=== PATIENT | male | born 1965 | race Caucasian/White ===

== ENCOUNTER 2018-01-02 16:29 | Emergency (ER) | payer BC ==
[2018-01-02 16:50] VITALS: O2SAT 98
[2018-01-02] MEDS ORDERED: Vistaril 50 MG/ML IM ONE (17:36)
[2018-01-02] MEDS ORDERED: Sodium Chloride 0.9% 1000 ML 1,000 ML IV STA (17:38)
[2018-01-02] MEDS ORDERED: VISTARIL 100MG/2ML IM ONE (18:01)
[2018-01-02] MEDS ORDERED: Sodium Chloride 0.9% 1000 ML 1,000 ML ONE (18:02)
[2018-01-02 18:14] LABS: BASOPHIL % 0.2 % (0.0-0.4); Basophil (Absolute #) 0.01 (0-0.4); Eosinophil % 2.4 % (0.00-5.0); Eosinophil (Absolute #) 0.16 (0-0.5); Granulocyte Absolute (ANC) 4.51 (1.4-6.9); Granulocytes % 68.1 % (36.0-66.0); Hematocrit 43.2 % (42-50); Hemoglobin 15.1 gm/dl (12.5-18.0); Lymphocyte (Absolute #) 1.38 (1.0-4.6); Lymphocytes % 20.8 % (24.0-44.0); Mean Cell Volume 87.1 fl (78-100); Mean Corpuscular Hemoglobin 30.4 pg (26-32); Mean Platelet Volume 10.2 fl (6-9.5); Monocyte (Absolute #) 0.56 (0.0-1.3); Monocytes % 8.5 % (0.0-12.0); Platelet Count 185 K/mm3 (150-450); Red Blood Count 4.96 M/mm3 (4.1-5.6); Red Cell Distribution Width 12.6 % (11.5-14.0); White Blood Count 6.6 K/mm3 (4.0-10.5)
[2018-01-02 18:26] LABS: Appearance CLEAR (CLEAR); Bilirubin NEGATIVE (NEGATIVE); Blood NEGATIVE Ery/ul (0-5); Glucose NEGATIVE (NEGATIVE); Ketones NEGATIVE (NEGATIVE); Leukocyte Esterase NEGATIVE (NEGATIVE); Nitrite NEGATIVE (NEGATIVE); Protein,Urine Dip NEGATIVE (Negative); Urobilinogen NORMAL mg/dL (0-1)
[2018-01-02 18:37] LABS: BLOOD UREA NITROGEN 14 mg/dL (9-20); CHLORIDE 105 mmol/L (98-107); Calcium 9.7 mg/dL (8.4-10.2); Carbon Dioxide 21 mmol/L (22-30); Creatinine 1 1.01 mg/dL (0.66-1.25); Glucose 131 mg/dL (74-106); Potassium 3.8 mmol/L (3.5-5.1); SODIUM 141 mmol/L (137-145)
--- NOTE | 2018-01-02 19:42 | ERPHSYRPT ---
- History of Present Illness Time Seen by Provider: 01/02/18 17:23 Source: patient, family Patient Subjective Stated Complaint: Pt arrives to ER with a litany of c/o including "I feel drunk", prostate infection for which is on abx started November 30 and started new abx January 01, burning at the tip of penis on outside started yesterday, feels hot all over, lips and eyelids tingling, involuntary twitching and intermittent chest pains for past month, currently pain free. Triage Nursing Assessment: Warm, clammy skin. A&OX4 and in no distress at this time. Physician History: CC: burning hx: 52 y/o patient of [employer] Tina Schreiber and Dr Luz Mccall. He was treated for prostatitis with 28 days of cipro last month. Stopped. Last week had return of some symptoms so called out bactrim on January 01. He took a few doses and felt burning in his whole body, burning and irritation of glans penis, hot all over, tingling in his eyes, lips, and hands. No fever or chills. Normal urination. No back pain. No trouble breathing. No itching. No V/D. Last dose of bactrim was at 3PM today. Timing/Duration: yesterday Severity: moderate Allergies/Adverse Reactions: No Known Drug Allergies Allergy (Unverified 08/29/13 09:27) Home Medications: Hydrocodone/APAP 10/325 mg [Mars 10/325 MG Tablet] 1 tab PO Q8HPRN PRN [History] Metoprolol Succinate 25 mg Xl* [Toprol-Xl 25MG Tablets] 25 mg PO DAILY [History] Sulfamethoxazole/Trimethoprim [Bactrim 400-80 mg Tablet] 2 tab PO BID 01/02/18 [ History] Venlafaxine HCl ER 37.5 mg [Effexor ER 37.5 MG] 37.5 mg PO DAILY 01/02/18 [History] Hx Tetanus, Diphtheria Vaccination/Date Given: Yes Hx Influenza Vaccination/Date Given: Yes Hx Pneumococcal Vaccination/Date Given: Yes Immunizations Up to Date: Yes - Review of Systems Constitutional: Malaise, No Fever, No Chills Eyes: No Symptoms Ears, Nose, & Throat: No Symptoms Respiratory: No Cough, No Dyspnea Cardiac: No Chest Pain Abdominal/Gastrointestinal: No Abdominal Pain, No Nausea, No Vomiting, No Diarrhea Skin: No Pruritis, No Rash, No Skin Lesions Neurological: No Focal Weakness, No Headache, No Parasthesia All Other Systems: Reviewed and Negative - Past Medical History Pertinent Past Medical History: Yes Neurological History: No Pertinent History Cardiac History: No Pertinent History Respiratory History: No Pertinent History Endocrine Medical History: No Pertinent History Musculoskeletal History: Arthritis Male Reproductive Disorders: Prostate Problems - Past Surgical History Past Surgical History: Yes Gastrointestinal: Other - Social History Smoking Status: Former smoker Exposure to second hand smoke: Yes Drug Use: none Patient Lives Alone: No - Nursing Vital Signs Nursing Vital Signs: Initial Vital Signs Temperature 99.2 F 01/02/18 16:41 Pulse Rate 94 H 01/02/18 16:41 Respiratory Rate 18 01/02/18 16:41 Blood Pressure 159/85 01/02/18 16:41 O2 Sat by Pulse Oximetry 98 01/02/18 16:41 Pain Scale Pain Intensity 1 - Physical Exam General Appearance: alert Eye Exam: PERRL/EOMI Ears, Nose, Throat Exam: normal ENT inspection, pharynx normal, moist mucous membranes Neck Exam: normal inspection, non-tender, supple Respiratory Exam: normal breath sounds Cardiovascular Exam: regular rate/rhythm Gastrointestinal/Abdomen Exam: soft, No tenderness, No distention, No mass, No guarding Male Genitalia Exam: prostate enlargement, other (mild erythema glans penis, no other apparent mucous membrane ulcerations or lesions), No testicular tenderness , No prostate tenderness, No penile discharge Back Exam: normal inspection, normal range of motion Extremity Exam: normal inspection, normal range of motion Neurologic Exam: alert, oriented x 3, cooperative, appointment coordinator II-XII nml as tested, sensation nml, No motor deficits Skin Exam: warm, dry, No rash SpO2 Interpretation: normal SpO2: 98 Oxygen Delivery: Room Air - Course Nursing assessment & vital signs reviewed: Yes Ordered Tests: Active Orders 24 hr Category Date Time Status EKG-ER Only STAT Care 01/02/18 17:38 Active IV Insertion STAT Care 01/02/18 17:38 Active Rectal Temperature STAT Care 01/02/18 17:39 Active BLOOD CULTURE Stat Lab 01/02/18 18:05 Received BMP Stat Lab 01/02/18 17:50 Completed CBC W DIFF Stat Lab 01/02/18 17:50 Completed Lactic Acid Stat Lab 01/02/18 17:38 Completed UA W/RFX UR CULTURE Stat Lab 01/02/18 18:15 Completed Medication Summary Discontinued Medications Generic Name Dose Route Start Last Admin Trade Name Freq PRN Reason Stop Dose Admin Hydroxyzine HCl 50 mg 01/02/18 17:36 01/02/18 18:11 Vistaril 50 Mg/Ml IM 01/02/18 17:37 50 mg STAT ONE Administration Hydroxyzine HCl Confirm 01/02/18 18:01 Vistaril 100mg/2ml Administered 01/02/18 18:02 Dose 100 mg IM .STK-MED ONE Sodium Chloride 1,000 mls @ 999 mls/hr 01/02/18 17:38 01/02/18 18:11 Sodium Chloride 0.9% 1000 Ml IV 01/02/18 18:38 999 mls/hr .Q1H1M STA Administration Sodium Chloride Confirm 01/02/18 18:02 Sodium Chloride 0.9% 1000 Ml Administered 01/02/18 18:03 Dose 1,000 mls @ ud .ROUTE .STK-MED ONE Lab/Rad Data: Laboratory Result Diagrams 01/02/18 17:50 01/02/18 17:50 Laboratory Results 01/02/18 01/02/18 01/02/18 Range/Units 18:15 17:50 17:50 WBC 6.6 (4.0-10.5) K/mm3 RBC 4.96 (4.1-5.6) M/mm3 Hgb 15.1 (12.5-18.0) gm/dl Hct 43.2 (42-50) % MCV 87.1 (78-100) fl MCH 30.4 (26-32) pg MCHC 35.0 (32-36) g/dl RDW 12.6 (11.5-14.0) % Plt Count 185 (150-450) K/mm3 MPV 10.2 H (6-9.5) fl Gran % 68.1 H (36.0-66.0) % Eos # (Auto) 0.16 (0-0.5) Absolute Lymphs (auto) 1.38 (1.0-4.6) Absolute Monos (auto) 0.56 (0.0-1.3) Lymphocytes % 20.8 L (24.0-44.0) % Monocytes % 8.5 (0.0-12.0) % Eosinophils % 2.4 (0.00-5.0) % Basophils % 0.2 (0.0-0.4) % Absolute Granulocytes 4.51 (1.4-6.9) Basophils # 0.01 (0-0.4) Sodium 141 (137-145) mmol/L Potassium 3.8 (3.5-5.1) mmol/L Chloride 105 (98-107) mmol/L Carbon Dioxide 21 L (22-30) mmol/L Anion Gap 19.0 H (5-15) MEQ/L BUN 14 (9-20) mg/dL Creatinine 1.01 (0.66-1.25) mg/dL Estimated GFR > 60.0 ML/MIN Glucose 131 H (74-106) mg/dL Lactic Acid (0.4-2.0) Calcium 9.7 (8.4-10.2) mg/dL Ur Collection Type CCMS Urine Color YELLOW (YELLOW) Urine Appearance CLEAR (CLEAR) Urine pH 6.0 (5-6) Ur Specific [place] 1.020 (1.005-1.025) Urine Protein NEGATIVE (Negative) Urine Ketones NEGATIVE (NEGATIVE) Urine Blood NEGATIVE (0-5) Seth/ul Urine Nitrite NEGATIVE (NEGATIVE) Urine Bilirubin NEGATIVE (NEGATIVE) Urine Urobilinogen NORMAL (0-1) mg/dL Ur Leukocyte Esterase NEGATIVE (NEGATIVE) Urine Culture Reflexed NO (NO) Urine Glucose NEGATIVE (NEGATIVE) mg/dL Specimen Received 01-02-18 1820 01/02/18 Range/Units 17:38 WBC (4.0-10.5) K/mm3 RBC (4.1-5.6) M/mm3 Hgb (12.5-18.0) gm/dl Hct (42-50) % MCV (78-100) fl MCH (26-32) pg MCHC (32-36) g/dl RDW (11.5-14.0) % Plt Count (150-450) K/mm3 MPV (6-9.5) fl Gran % (36.0-66.0) % Eos # (Auto) (0-0.5) Absolute Lymphs (auto) (1.0-4.6) Absolute Monos (auto) (0.0-1.3) Lymphocytes % (24.0-44.0) % Monocytes % (0.0-12.0) % Eosinophils % (0.00-5.0) % Basophils % (0.0-0.4) % Absolute Granulocytes (1.4-6.9) Basophils # (0-0.4) Sodium (137-145) mmol/L Potassium (3.5-5.1) mmol/L Chloride (98-107) mmol/L Carbon Dioxide (22-30) mmol/L Anion Gap (5-15) MEQ/L BUN (9-20) mg/dL Creatinine (0.66-1.25) mg/dL Estimated GFR ML/MIN Glucose (74-106) mg/dL Lactic Acid 1.8 (0.4-2.0) Calcium (8.4-10.2) mg/dL Ur Collection Type Urine Color (YELLOW) Urine Appearance (CLEAR) Urine pH (5-6) Ur Specific [place] (1.005-1.025) Urine Protein (Negative) Urine Ketones (NEGATIVE) Urine Blood (0-5) Seth/ul Urine Nitrite (NEGATIVE) Urine Bilirubin (NEGATIVE) Urine Urobilinogen (0-1) mg/dL Ur Leukocyte Esterase (NEGATIVE) Urine Culture Reflexed (NO) Urine Glucose (NEGATIVE) mg/dL Specimen Received - Progress Progress Note: 01/02/18 19:44 He was tachy after prostate exam, no fever. Normal urination. Will stop bactrim , Rx atarax, and Rx keflex until follow up with Dr Mccall and ELAN Schreiber. Counseled pt/family regarding: lab results, diagnosis, need for follow-up - Departure Time of Disposition: 19:45 Departure Disposition: Home Clinical Impression: Allergy to sulfa drugs, Hx of prostatitis Condition: Stable Critical Care Time: No Referrals: AYSE MCCALL [Primary Care Provider] - LORI SCHREIBER NP [[employer] STAFF] - Instructions: Allergy to Sulfa Drugs, Prostatitis Additional Instructions: Rx atarax-hydroxyzine. No driving tonite or while taking. Stop bactrim. Rx keflex. Follow up this week with Dr Mccall/ELAN Schreiber. Return for problems or concerns. Prescriptions: Hydroxyzine HCl 1 tab PO Q6H PRN PRN #24 tablet PRN Reason: rash,rest Cephalexin Mh 500 mg [Keflex 500 mg] 1 cap PO QID #40 capsule
[2018-01-02 19:56] VITALS: BP 134/89; PULSE 88
== END 2018-01-02 20:00 | disposition home or self-care (01) ==
LOC: ED 16:29
DX: R20.2 Paresthesia of skin (principal); T37.0X5A Adverse effect of sulfonamides, initial encounter; Z87.438 Personal history of other diseases of male genital organs; Z79.899 Other long term (current) drug therapy
CPT/HCPCS: 36000; 36415; 80048; 81002; 83605; 85025; 87040; 96360; 96372; 99284; J3410

== ENCOUNTER 2018-02-21 10:40 | Day surgery (SDC) | payer BC ==
[2018-02-21] MEDS ORDERED: DECADRON 10MG INJ. IM ONE (10:41)
[2018-02-21] MEDS ORDERED: DIPRIVAN 200 MG/20 ML IV ONE (10:41)
[2018-02-21] MEDS ORDERED: Xylocaine 1% Vial 30 ML PF IJ ONE (10:41)
[2018-02-21] MEDS ORDERED: Lactated Ringers 1,000 ML IV ONE (12:06)
--- NOTE | 2018-02-21 13:35 | XRAY ---
Indication: Left L4 FANY. Intraoperative fluoroscopy was provided for 1 minute 5 seconds. 3 digital spot images submitted for interpretation demonstrates a posterior spinal needle tip projecting over the expected course of the left L4 nerve root. Tiny contrast injected for needle tip placement. Correlate with intraoperative findings/report.
--- NOTE | 2018-02-21 13:47 | XRAY ---
1 minute and 5 seconds fluoroscopy time in surgery for left L4 FANY.
--- NOTE | 2018-02-22 08:41 | OP ---
DATE OF PROCEDURE: 02/21/2018 1233 SURGEON: Kenny Sumner D.O. PREOPERATIVE DIAGNOSES: Degenerative lumbar spine disease, lumbar spondylosis. POSTOPERATIVE DIAGNOSES: Degenerative lumbar spine disease, lumbar spondylosis. PROCEDURE PERFORMED: Epidural steroid injection at left L4 under fluoroscopic guidance. DESCRIPTION OF PROCEDURE: The patient was taken to the operating room and laid in the prone position on the table. Skin over the injection site was prepped and draped in sterile fashion. Under fluoroscope bony anatomy at the targeted injection site was visualized. Induction agent was given as per anesthesia while vital signs were monitored. Local anesthetic agent was introduced to anesthetize the skin in the subcutaneous tissue through injection site. The local anesthetic agent used is 9 cc of 1% lidocaine. Under fluoroscopic guidance a #22-gauge standard spinal needle was advanced into the target epidural space. The medication used for this procedure is preservative-free dexamethasone 20 mg of total 2 cc injected into each of the target epidural space. While the needle was being removed normal saline was simultaneously infiltrated to avoid sterile needle tract. Skin was cleansed with alcohol and then a bandage was applied. The preoperative pain level 10 out of 10 and the postoperative pain level is 5 out of 10. No complications or adverse consequences were observed. The patient was returned to the holding area until stabilized before discharge to home. The patient will be followed up within ten days after the injection for reevaluation.
== END 2018-02-21 13:18 | disposition home or self-care (01) ==
LOC: SDC-PAIN 10:40
PROVIDERS: ATTEND Internal Medicine
DX: M51.36 Other intervertebral disc degeneration, lumbar region (principal); M54.5 Low back pain; M54.16 Radiculopathy, lumbar region; M46.96 Unspecified inflammatory spondylopathy, lumbar region; Z79.891 Long term (current) use of opiate analgesic
CPT/HCPCS: 64483; 72020; 77003; J1100; J2001; J2704; Q9967

== ENCOUNTER 2018-09-09 16:40 | Observation (INO) | payer BC, OTHER, SELFPAY ==
--- NOTE | 2018-09-09 17:11 | ERPHSYRPT ---
- History of Present Illness Time Seen by Provider: 09/09/18 17:00 Historian: patient Exam Limitations: no limitations Patient Subjective Stated Complaint: PT states "About 9 am this morning I started to have this odd chest pain. I didn't think anything of it until it started to go up my neck and I started to have an odd headach." Triage Nursing Assessment: Pt alert and oriented X 3, skin pwd. PT ambulates with an upright steady gait, able to speak in clear full sentences. PT in no apparent respiratory distress. Physician History: This is a 52-year-old white male who arrives with complaint of pain in his anterior chest radiating up into the left side of his neck began approximately 9 :00 this morning lasted about 15-20 minutes. and then has been recurring since around noon. Patient states he is not short of breath with did have pain into his neck. he states that he started seeing spots vision while he was driving with the pain. Therefore he came into the emergency room. Past medical history prostate problems. Past surgical history patient had repair of his colon and his bladder apparently had ingested something sharp which apparently led to stool and bladder. Timing/Duration: today Activities at Onset: none Quality: tightness Location: central Chest Pain Radiation: neck (1) Severity of Pain-Max: moderate Severity of Pain-Current: mild (on) Modifying Factors: Improves With: nothing Associated Symptoms: headache, other (patient states he was seeing spots with the above symptoms), No nausea, No vomiting, No palpitations, No heartburn, No abdominal pain, No shortness of breath, No cough, No hurts to breathe, No diaphoresis, No chills, No fever, No fatigue, No weakness, No swelling/lump in chest, No syncope, No rash, No dizziness, No edema, No back pain Aspirin Treatment Today: 81 mg x 4, provided by ED Allergies/Adverse Reactions: Sulfa (Sulfonamide Antibiotics) Allergy (Verified 09/09/18 16:50) felt like on fire Home Medications: Hydrocodone Bit/Acetaminophen [[place] 5-325 Tablet] 1 tab PO TID 09/09/18 [ History] Metoprolol Tartrate [Lopressor] 50 mg PO DAILY 09/09/18 [History] Prazosin HCl 1 mg PO DAILY 09/09/18 [History] lamoTRIgine [Lamotrigine] 100 mg PO DAILY 09/09/18 [History] Hx Tetanus, Diphtheria Vaccination/Date Given: Yes Hx Influenza Vaccination/Date Given: No Hx Pneumococcal Vaccination/Date Given: No Immunizations Up to Date: Yes - Review of Systems Constitutional: No No Symptoms, No Fever, No Chills Eyes: Other (Patient's seeing spots while he was having pain in his chest) Ears, Nose, & Throat: No Symptoms Respiratory: No Cough, No Dyspnea Cardiac: Chest Pain, Palpitations, No Edema, No Syncope, No Orthopnea Abdominal/Gastrointestinal: No Abdominal Pain, No Nausea, No Vomiting, No Diarrhea Genitourinary Symptoms: No Dysuria Musculoskeletal: No Arthralgias, No Back Pain, No Neck Pain, No Deformity, No Fall, No Injury, No Joint Redness, No Joint Pain, No Joint Swelling Skin: No Rash Neurological: Headache, No Dizziness, No Focal Weakness, No Gait Changes, No Irritability, No Lethargy, No Paralysis, No Parasthesia, No Seizure, No Sensory Changes, No Speech Changes, No Tics, No Tremors, No Vertigo Psychological: No Symptoms Endocrine: No Symptoms All Other Systems: Reviewed and Negative - Past Medical History Pertinent Past Medical History: Yes Neurological History: No Pertinent History Cardiac History: No Pertinent History Respiratory History: No Pertinent History Endocrine Medical History: No Pertinent History Musculoskeletal History: Arthritis Male Reproductive Disorders: Prostate Problems - Past Surgical History Past Surgical History: Yes Gastrointestinal: Other - Social History Smoking Status: Former smoker Exposure to second hand smoke: Yes Drug Use: none Patient Lives Alone: No - Nursing Vital Signs Nursing Vital Signs: Initial Vital Signs Temperature 99.0 F 09/09/18 16:43 Pulse Rate 78 09/09/18 16:43 Respiratory Rate 20 09/09/18 16:43 Blood Pressure 171/94 09/09/18 16:43 O2 Sat by Pulse Oximetry 98 09/09/18 16:43 Pain Scale Pain Intensity 0 - Physical Exam General Appearance: no apparent distress, alert Eye Exam: PERRL/EOMI, eyes nml inspection Ears, Nose, Throat Exam: normal ENT inspection, moist mucous membranes Neck Exam: normal inspection, non-tender, supple, full range of motion Respiratory Exam: normal breath sounds, lungs clear, No respiratory distress Cardiovascular Exam: regular rate/rhythm, normal heart sounds, normal peripheral pulses, No murmur Gastrointestinal/Abdomen Exam: soft, No tenderness, No mass Back Exam: normal inspection, No CVA tenderness, No vertebral tenderness Extremity Exam: normal inspection, normal range of motion Neurologic Exam: alert, oriented x 3, cooperative, health worker II-XII nml as tested, normal mood/affect, nml cerebellar function, sensation nml, No motor deficits, No sensory deficit, No disoriented, No confusion, No agitation, No uncooperative , No intoxicated appearance, No depressed mood/affect, No motor weakness, No facial droop, No slurred speech, No aphasia, No dysarthria, No abnormal gait, No abnormal cerebellar tests, No abnormal health worker II-XII Skin Exam: normal color, warm, dry SpO2 Interpretation: normal (98%) SpO2: 98 Oxygen Delivery: Room Air - Course Nursing assessment & vital signs reviewed: Yes EKG Interpreted by Me: RATE (78 bpm), Sinus Rhythm, NORMAL AXIS, Other (EKG: Sinus rhythm, 78 bpm, normal axis, no acute ST or T wave changes, normal EKG) - Radiology Exams Chest X-ray Interpretation: Interpreted by me (no acute disease process noted) - CT Exams Head CT Interpretation: Tele-radiologist Report (no infarct, no hemorrhage, no mass) Ordered Tests: Active Orders 24 hr Category Date Time Status Application Design Engineer STAT Care 09/09/18 16:46 Active EKG-ER Only STAT Care 09/09/18 16:46 Active IV Insertion STAT Care 09/09/18 16:46 Active CHEST 1 VIEW (PORTABLE) Stat Exams 09/09/18 16:46 Taken HEAD WITHOUT CONTRAST [CT] Stat Exams 09/09/18 17:05 Taken CBC W DIFF Stat Lab 09/09/18 17:00 Completed CMP Stat Lab 09/09/18 17:00 Completed D-DIMER QUANTITATION Stat Lab 09/09/18 17:00 Completed PROTIME WITH INR Stat Lab 09/09/18 17:00 Completed PTT Stat Lab 09/09/18 17:00 Completed TROPONIN Q3H Lab 09/09/18 17:00 Completed TROPONIN Q3H Lab 09/09/18 20:00 Ordered TROPONIN Q3H Lab 09/09/18 23:00 Ordered TROPONIN Q3H Lab 09/10/18 02:00 Ordered TROPONIN Q3H Lab 09/10/18 05:00 Ordered Medication Summary Discontinued Medications Generic Name Dose Route Start Last Admin Trade Name Freq PRN Reason Stop Dose Admin Aspirin 324 mg 09/09/18 17:55 09/09/18 17:00 Baby Aspirin 81 Mg Chew PO 09/09/18 17:56 324 mg STAT ONE Administration Aspirin Confirm 09/09/18 18:35 Baby Aspirin 81 Mg Chew Administered 09/09/18 18:36 Dose 324 mg .ROUTE .STK-MED ONE Lab/Rad Data: Laboratory Result Diagrams 09/09/18 17:00 09/09/18 17:00 Laboratory Results 09/09/18 09/09/18 09/09/18 Range/Units 17:00 17:00 17:00 WBC (4.0-10.5) K/mm3 RBC (4.1-5.6) M/mm3 Hgb (12.5-18.0) gm/dl Hct (42-50) % MCV (78-100) fl MCH (26-32) pg MCHC (32-36) g/dl RDW (11.5-14.0) % Plt Count (150-450) K/mm3 MPV (6-9.5) fl Gran % (36.0-66.0) % Eos # (Auto) (0-0.5) Absolute Lymphs (auto) (1.0-4.6) Absolute Monos (auto) (0.0-1.3) Lymphocytes % (24.0-44.0) % Monocytes % (0.0-12.0) % Eosinophils % (0.00-5.0) % Basophils % (0.0-0.4) % Absolute Granulocytes (1.4-6.9) Basophils # (0-0.4) PT 12.2 (8.83-12.87) SECONDS INR 1.05 (0.8-3.0) APTT 30.4 (24.1-36.1) SECONDS D-Dimer 254 (215-500) ng/mL Sodium 138 (137-145) mmol/L Potassium 5.2 H (3.5-5.1) mmol/L Chloride 108 H (98-107) mmol/L Carbon Dioxide 19 L (22-30) mmol/L Anion Gap 16.4 H (5-15) MEQ/L BUN 12 (9-20) mg/dL Creatinine 0.80 (0.66-1.25) mg/dL Estimated GFR > 60.0 ML/MIN Glucose 124 H (74-106) mg/dL Calcium 9.3 (8.4-10.2) mg/dL Total Bilirubin 0.70 (0.2-1.3) mg/dL AST 40 (17-59) U/L ALT 30 (0-50) U/L Alkaline Phosphatase 88 (38-126) U/L Troponin I < 0.012 (0.000-0.034) ng/mL Serum Total Protein 7.3 (6.3-8.2) g/dL Albumin 4.5 (3.5-5.0) g/dL 09/09/18 Range/Units 17:00 WBC 4.9 (4.0-10.5) K/mm3 RBC 4.51 (4.1-5.6) M/mm3 Hgb 14.1 (12.5-18.0) gm/dl Hct 40.7 L (42-50) % MCV 90.2 (78-100) fl MCH 31.3 (26-32) pg MCHC 34.6 (32-36) g/dl RDW 12.8 (11.5-14.0) % Plt Count 189 (150-450) K/mm3 MPV 10.7 H (6-9.5) fl Gran % 67.1 H (36.0-66.0) % Eos # (Auto) 0.22 (0-0.5) Absolute Lymphs (auto) 0.98 L (1.0-4.6) Absolute Monos (auto) 0.40 (0.0-1.3) Lymphocytes % 19.9 L (24.0-44.0) % Monocytes % 8.1 (0.0-12.0) % Eosinophils % 4.5 (0.00-5.0) % Basophils % 0.4 (0.0-0.4) % Absolute Granulocytes 3.30 (1.4-6.9) Basophils # 0.02 (0-0.4) PT (8.83-12.87) SECONDS INR (0.8-3.0) APTT (24.1-36.1) SECONDS D-Dimer (215-500) ng/mL Sodium (137-145) mmol/L Potassium (3.5-5.1) mmol/L Chloride (98-107) mmol/L Carbon Dioxide (22-30) mmol/L Anion Gap (5-15) MEQ/L BUN (9-20) mg/dL Creatinine (0.66-1.25) mg/dL Estimated GFR ML/MIN Glucose (74-106) mg/dL Calcium (8.4-10.2) mg/dL Total Bilirubin (0.2-1.3) mg/dL AST (17-59) U/L ALT (0-50) U/L Alkaline Phosphatase (38-126) U/L Troponin I (0.000-0.034) ng/mL Serum Total Protein (6.3-8.2) g/dL Albumin (3.5-5.0) g/dL - Progress Progress: improved Air Movement: fair Progress Note: 09/09/18 19:09 Patient is feeling better. Case is discussed with Dr. mahajan. Will place patient on observation. Place patient on normal saline 100 mL per hour. Obtain serial troponins. - Departure Time of Disposition: 19:11 Departure Disposition: Observation Clinical Impression: Chest pain Qualifiers: Chest pain type: unspecified Qualified Code(s): R07.9 - Chest pain, unspecified Condition: Fair Critical Care Time: No Referrals: AYSE MCCALL [Primary Care Provider] -
[2018-09-09 17:20] LABS: BASOPHIL % 0.4 % (0.0-0.4); Basophil (Absolute #) 0.02 (0-0.4); Eosinophil % 4.5 % (0.00-5.0); Eosinophil (Absolute #) 0.22 (0-0.5); Granulocytes % 67.1 % (36.0-66.0); Hematocrit 40.7 % (42-50); Hemoglobin 14.1 gm/dl (12.5-18.0); Lymphocyte (Absolute #) 0.98 (1.0-4.6); Lymphocytes % 19.9 % (24.0-44.0); Mean Cell Volume 90.2 fl (78-100); Mean Corpuscular Hemoglobin 31.3 pg (26-32); Mean Corpuscular Hgb Concent. 34.6 g/dl (32-36); Mean Platelet Volume 10.7 fl (6-9.5); Monocytes % 8.1 % (0.0-12.0); Platelet Count 189 K/mm3 (150-450); Red Blood Count 4.51 M/mm3 (4.1-5.6); Red Cell Distribution Width 12.8 % (11.5-14.0); White Blood Count 4.9 K/mm3 (4.0-10.5)
[2018-09-09 17:31] LABS: INR 1.05 (0.8-3.0)
[2018-09-09 17:34] LABS: PTT 30.4 SECONDS (24.1-36.1)
[2018-09-09 17:35] LABS: ALBUMIN 4.5 g/dL (3.5-5.0); ALKALINE PHOSPHATASE 88 U/L (38-126); ANION GAP 16.4 MEQ/L (5-15); BLOOD UREA NITROGEN 12 mg/dL (9-20); CHLORIDE 108 mmol/L (98-107); Calcium 9.3 mg/dL (8.4-10.2); Carbon Dioxide 19 mmol/L (22-30); Glucose 124 mg/dL (74-106); Potassium 5.2 mmol/L (3.5-5.1); SGOT/AST 40 U/L (17-59); SGPT/ALT 30 U/L (0-50); SODIUM 138 mmol/L (137-145); Total Protein 7.3 g/dL (6.3-8.2)
[2018-09-09] MEDS ORDERED: BABY ASPIRIN 81 MG CHEW PO ONE (17:55)
[2018-09-09] MEDS ORDERED: BABY ASPIRIN 81 MG CHEW ONE (18:35)
[2018-09-09] MEDS ORDERED: Sodium Chloride 0.9% 1000 ML 1,000 ML IV SCH (19:15)
--- NOTE | 2018-09-09 20:14 | XRAY ---
Indication: Headache and vision change. High blood pressure. Comparison: None Portable apical lordotic chest demonstrates normal heart and lungs. Bony thorax intact.
--- NOTE | 2018-09-09 20:14 | XRAY ---
Indication: Headache and vision change. High blood pressure. Multiple contiguous axial images obtained through the head without contrast. Comparison: None Normal appearing brain parenchyma, ventricles, and bony calvarium. Visualized paranasal sinuses and mastoid air cells are clear. Impression: Normal CT head without contrast exam. Comment: Preliminary interpretation was made by [facility]. No discrepancy. CTDI 68.81
[2018-09-09] MEDS: Sodium Chloride 0.9% 1000 ML 1,000 ML IV SCH (20:44)
[2018-09-09] MEDS ORDERED: MAALOX ES 30 ML UNIT DOSE PO PRN (21:47)
[2018-09-09] MEDS ORDERED: TYLENOL 325 MG PO PRN (21:47)
[2018-09-09] MEDS ORDERED: Zofran 4 MG/2 ML VIAL IV PRN (21:47)
[2018-09-09] MEDS ORDERED: NORCO 5/325 MG PO PRN (21:51)
[2018-09-09] MEDS ORDERED: Ecotrin 325 MG PO SCH (22:00)
[2018-09-10 05:37] LABS: BASOPHIL % 0.5 % (0.0-0.4); Basophil (Absolute #) 0.03 (0-0.4); Eosinophil % 4.3 % (0.00-5.0); Eosinophil (Absolute #) 0.25 (0-0.5); Granulocyte Absolute (ANC) 3.91 (1.4-6.9); Granulocytes % 66.7 % (36.0-66.0); Hematocrit 41.3 % (42-50); Lymphocyte (Absolute #) 1.18 (1.0-4.6); Lymphocytes % 20.1 % (24.0-44.0); Mean Cell Volume 90.2 fl (78-100); Mean Corpuscular Hemoglobin 30.6 pg (26-32); Mean Corpuscular Hgb Concent. 33.9 g/dl (32-36); Mean Platelet Volume 9.7 fl (6-9.5); Monocyte (Absolute #) 0.49 (0.0-1.3); Monocytes % 8.4 % (0.0-12.0); Platelet Count 181 K/mm3 (150-450); Red Blood Count 4.58 M/mm3 (4.1-5.6); White Blood Count 5.9 K/mm3 (4.0-10.5)
[2018-09-10] MEDS: Sodium Chloride 0.9% 1000 ML 1,000 ML IV SCH (06:33)
[2018-09-10 07:22] VITALS: BP 122/72; PULSE 64; O2SAT 94
--- NOTE | 2018-09-10 08:43 | PCM.HP ---
History of Present Illness - Chief Complaint Chief Complaint: chest pain Date: 09/11/18 History of Present Illness: is a 52 year old male. who has recently tried to go back to work after a prolonged time off due to panic attacks following with Dr. White of psychiatry. He was going to his 3rd day of work when he started getting chest pain on the way there. He went home and it resolved. He described it as a squeezing pain in the center of his chest. He was doing well after this. He had shortness of breath with it. He then had a recurrence in the evening and came to the ED for evaluation. He has had a recent cardiac workup negative with Dr. Salazar. He has not had any pain since 11pm last night. He is eating well denies shortness of breath, palpitations, nausea, gerd. he was having some intermittent dry cough for a few days. - Review of Systems Constitutional: No Fever, No Chills Eyes: No Symptoms Ears, Nose, & Throat: No Symptoms Respiratory: Cough, No Short Of Breath Cardiac: Chest Pain, No Edema, No Syncope Abdominal/Gastrointestinal: No Abdominal Pain, No Nausea, No Vomiting, No Diarrhea Genitourinary Symptoms: No Dysuria Musculoskeletal: No Back Pain, No Neck Pain Skin: No Rash Neurological: No Dizziness, No Focal Weakness, No Sensory Changes Psychological: No Symptoms Endocrine: No Symptoms Hematologic/Lymphatic: No Symptoms Immunological/Allergic: No Symptoms Medications & Allergies Home Medications: Home Medication List Hydrocodone Bit/Acetaminophen [[place] 5-325 Tablet] 1 tab PO TID PRN 09/09/18 [ History Confirmed 09/09/18] Metoprolol Tartrate [Lopressor] 50 mg PO 1600 09/09/18 [History Confirmed ] Prazosin HCl 1 mg PO DAILY 09/09/18 [History Confirmed 09/09/18] lamoTRIgine [Lamotrigine] 150 mg PO DAILY 09/09/18 [History Confirmed 09/09/18] Allergies/Adverse Reactions: Allergies Allergy/AdvReac Type Severity Reaction Status Date / Time Sulfa (Sulfonamide Allergy felt like Verified 09/09/18 16:50 Antibiotics) on fire - Past Medical History Past Medical History: Yes Neurological History: No Pertinent History Cardiac History: No Pertinent History Respiratory History: No Pertinent History Endocrine Medical History: No Pertinent History Musculoskelatal History: Arthritis Pyscho-Social History: Anxiety, Bipolar, Depression Male Reproductive Disorders: Prostate Problems Comment: Chronic back pain. - Past Surgical History Past Surgical History: Yes GI Surgical History: Other Other Surgical History: Colon/bladder surgery/perferation when child, lumbar injection to get rid of burning in legs. - Social History Smoking Status: Former smoker Exposure to second hand smoke: Yes Alcohol: None Drug Use: none - Physical Exam Vital Signs: Vital Signs - 24 hr Temp Pulse Pulse Resp BP Pulse Ox 09/10/18 07:22 97.7 F 64 17 122/72 94 L 09/10/18 04:00 98.4 F 69 14 139/77 96 09/10/18 00:00 98.4 F 65 18 131/72 96 09/09/18 22:00 98.2 F 52 L 18 141/70 98 09/09/18 19:13 60 16 121/60 98 09/09/18 19:11 98 09/09/18 18:28 98.1 F 63 17 127/71 95 09/09/18 17:52 62 18 137/74 97 09/09/18 17:37 74 18 147/84 96 09/09/18 16:43 99.0 F 76 78 20 171/94 98 General Appearance: no apparent distress, alert, obese Neurologic Exam: alert, oriented x 3, cooperative, normal mood/affect, nml cerebellar function, nml station & gait, sensation nml, No motor deficits Eye Exam: PERRL/EOMI, eyes nml inspection Ears, Nose, Throat Exam: normal ENT inspection, TMs normal, pharynx normal, moist mucous membranes Neck Exam: normal inspection, non-tender, supple, full range of motion Respiratory Exam: normal breath sounds, lungs clear, No respiratory distress Cardiovascular Exam: regular rate/rhythm, normal heart sounds, normal peripheral pulses Gastrointestinal/Abdomen Exam: soft, normal bowel sounds, No tenderness, No mass Back Exam: normal inspection, normal range of motion, No CVA tenderness, No vertebral tenderness Extremity Exam: normal inspection, normal range of motion, pelvis stable Skin Exam: normal color, warm, dry, No rash Lymphatic Exam: No adenopathy Results - Labs Lab/Micro Results: Lab Results-Last 24 Hours 09/09/18 09/09/18 09/09/18 Range/Units 17:00 17:00 17:00 WBC 4.9 (4.0-10.5) K/mm3 RBC 4.51 (4.1-5.6) M/mm3 Hgb 14.1 (12.5-18.0) gm/dl Hct 40.7 L (42-50) % MCV 90.2 (78-100) fl MCH 31.3 (26-32) pg MCHC 34.6 (32-36) g/dl RDW 12.8 (11.5-14.0) % Plt Count 189 (150-450) K/mm3 MPV 10.7 H (6-9.5) fl Gran % 67.1 H (36.0-66.0) % Eos # (Auto) 0.22 (0-0.5) Absolute Lymphs (auto) 0.98 L (1.0-4.6) Absolute Monos (auto) 0.40 (0.0-1.3) Lymphocytes % 19.9 L (24.0-44.0) % Monocytes % 8.1 (0.0-12.0) % Eosinophils % 4.5 (0.00-5.0) % Basophils % 0.4 (0.0-0.4) % Absolute Granulocytes 3.30 (1.4-6.9) Basophils # 0.02 (0-0.4) PT 12.2 (8.83-12.87) SECONDS INR 1.05 (0.8-3.0) APTT 30.4 (24.1-36.1) SECONDS D-Dimer 254 (215-500) ng/mL Sodium 138 (137-145) mmol/L Potassium 5.2 H (3.5-5.1) mmol/L Chloride 108 H (98-107) mmol/L Carbon Dioxide 19 L (22-30) mmol/L Anion Gap 16.4 H (5-15) MEQ/L BUN 12 (9-20) mg/dL Creatinine 0.80 (0.66-1.25) mg/dL Estimated GFR > 60.0 ML/MIN Glucose 124 H (74-106) mg/dL Calcium 9.3 (8.4-10.2) mg/dL Total Bilirubin 0.70 (0.2-1.3) mg/dL AST 40 (17-59) U/L ALT 30 (0-50) U/L Alkaline Phosphatase 88 (38-126) U/L Troponin I (0.000-0.034) ng/mL Serum Total Protein 7.3 (6.3-8.2) g/dL Albumin 4.5 (3.5-5.0) g/dL 09/09/18 09/09/18 09/09/18 Range/Units 17:00 20:48 23:00 WBC (4.0-10.5) K/mm3 RBC (4.1-5.6) M/mm3 Hgb (12.5-18.0) gm/dl Hct (42-50) % MCV (78-100) fl MCH (26-32) pg MCHC (32-36) g/dl RDW (11.5-14.0) % Plt Count (150-450) K/mm3 MPV (6-9.5) fl Gran % (36.0-66.0) % Eos # (Auto) (0-0.5) Absolute Lymphs (auto) (1.0-4.6) Absolute Monos (auto) (0.0-1.3) Lymphocytes % (24.0-44.0) % Monocytes % (0.0-12.0) % Eosinophils % (0.00-5.0) % Basophils % (0.0-0.4) % Absolute Granulocytes (1.4-6.9) Basophils # (0-0.4) PT (8.83-12.87) SECONDS INR (0.8-3.0) APTT (24.1-36.1) SECONDS D-Dimer (215-500) ng/mL Sodium (137-145) mmol/L Potassium (3.5-5.1) mmol/L Chloride (98-107) mmol/L Carbon Dioxide (22-30) mmol/L Anion Gap (5-15) MEQ/L BUN (9-20) mg/dL Creatinine (0.66-1.25) mg/dL Estimated GFR ML/MIN Glucose (74-106) mg/dL Calcium (8.4-10.2) mg/dL Total Bilirubin (0.2-1.3) mg/dL AST (17-59) U/L ALT (0-50) U/L Alkaline Phosphatase (38-126) U/L Troponin I < 0.012 < 0.012 < 0.012 (0.000-0.034) ng/mL Serum Total Protein (6.3-8.2) g/dL Albumin (3.5-5.0) g/dL 09/10/18 09/10/18 09/10/18 Range/Units 02:30 05:30 05:30 WBC 5.9 (4.0-10.5) K/mm3 RBC 4.58 (4.1-5.6) M/mm3 Hgb 14.0 (12.5-18.0) gm/dl Hct 41.3 L (42-50) % MCV 90.2 (78-100) fl MCH 30.6 (26-32) pg MCHC 33.9 (32-36) g/dl RDW 13.0 (11.5-14.0) % Plt Count 181 (150-450) K/mm3 MPV 9.7 H (6-9.5) fl Gran % 66.7 H (36.0-66.0) % Eos # (Auto) 0.25 (0-0.5) Absolute Lymphs (auto) 1.18 (1.0-4.6) Absolute Monos (auto) 0.49 (0.0-1.3) Lymphocytes % 20.1 L (24.0-44.0) % Monocytes % 8.4 (0.0-12.0) % Eosinophils % 4.3 (0.00-5.0) % Basophils % 0.5 (0.0-0.4) % Absolute Granulocytes 3.91 (1.4-6.9) Basophils # 0.03 (0-0.4) PT (8.83-12.87) SECONDS INR (0.8-3.0) APTT (24.1-36.1) SECONDS D-Dimer (215-500) ng/mL Sodium (137-145) mmol/L Potassium (3.5-5.1) mmol/L Chloride (98-107) mmol/L Carbon Dioxide (22-30) mmol/L Anion Gap (5-15) MEQ/L BUN (9-20) mg/dL Creatinine (0.66-1.25) mg/dL Estimated GFR ML/MIN Glucose (74-106) mg/dL Calcium (8.4-10.2) mg/dL Total Bilirubin (0.2-1.3) mg/dL AST (17-59) U/L ALT (0-50) U/L Alkaline Phosphatase (38-126) U/L Troponin I < 0.012 < 0.012 (0.000-0.034) ng/mL Serum Total Protein (6.3-8.2) g/dL Albumin (3.5-5.0) g/dL - Radiology Impressions Radiology Exams & Impressions: Radiology Procedures Category Date Time Status CHEST 1 VIEW (PORTABLE) Stat Exams 09/09/18 16:46 Completed ECHO W/2D AND DOPPLER [US] Urgent Exams 09/10/18 08:00 Ordered HEAD WITHOUT CONTRAST [CT] Stat Exams 09/09/18 17:05 Completed - Other Procedures and Tests Respiratory Therapy 09/11/18 05:00 EKG ROUTINE 09/12/18 05:00 EKG ROUTINE 09/13/18 05:00 EKG ROUTINE Assessment/Plan (1) Chest pain Status: Acute Onset Date: ~09/09/18 Qualifiers: Chest pain type: unspecified Qualified Code(s): R07.9 - Chest pain, unspecified Assessment & Plan: his ekg is unchanged, no events on telemetry, serial troponins are negative and he has been chest pain free overnight. we will discharge today with chest pain precautions and follow up with his furniture mechanic. the echocardiogram previously ordered is not covered at this time by his insurance. Code(s): R07.9 - CHEST PAIN, UNSPECIFIED (2) Panic disorder Status: Chronic Code(s): F41.0 - PANIC DISORDER [EPISODIC PAROXYSMAL ANXIETY] (3) PTSD (post-traumatic stress disorder) Status: Chronic Code(s): F43.10 - POST-TRAUMATIC STRESS DISORDER, UNSPECIFIED (4) HTN (hypertension) Status: Chronic Code(s): I10 - ESSENTIAL (PRIMARY) HYPERTENSION
--- NOTE | 2018-09-10 08:45 | PCM.DCORD ---
- Discharge Discharge Date: 09/10/18 Disposition: Home, Self-Care Condition: Fair Prescriptions: Continue lamoTRIgine [Lamotrigine] 150 mg PO DAILY Prazosin HCl 1 mg PO DAILY Metoprolol Tartrate [Lopressor] 50 mg PO 1600 Hydrocodone Bit/Acetaminophen [[place] 5-325 Tablet] 1 tab PO TID PRN PRN Reason: Pain Additional Instructions: after echo Follow up with: AYSE MCCALL [Primary Care Provider] - 1 Week GUILLE GLEASON [ACTIVE STAFF] - 1 Week
[2018-09-10 09:49] LABS: ALBUMIN 4.1 g/dL (3.5-5.0); ALKALINE PHOSPHATASE 65 U/L (38-126); ANION GAP 12.9 MEQ/L (5-15); BLOOD UREA NITROGEN 13 mg/dL (9-20); CHLORIDE 106 mmol/L (98-107); Calcium 9.2 mg/dL (8.4-10.2); Carbon Dioxide 25 mmol/L (22-30); Creatinine 1 0.95 mg/dL (0.66-1.25); Glucose 96 mg/dL (74-106); Potassium 4.6 mmol/L (3.5-5.1); SGOT/AST 22 U/L (17-59); SGPT/ALT 28 U/L (0-50); SODIUM 139 mmol/L (137-145); Total Protein 6.7 g/dL (6.3-8.2)
[2018-09-10] MEDS ORDERED: NON-FORMULARY ITEM (Prazosin Hcl [Prazosin Hcl] 0 MG) PO SCH (10:00)
[2018-09-10] MEDS ORDERED: Lopressor 50 MG PO SCH (16:00)
[2018-09-10] MEDS ORDERED: lamICTAL 100MG TABLET PO SCH (22:00)
== END 2018-09-10 09:45 | disposition home or self-care (01) ==
LOC: ED 16:40 → MED SURG 19:29
PROVIDERS: ADMIT Family Medicine; ATTEND Family Medicine
DX: R07.9 Chest pain, unspecified (principal); F41.0 Panic disorder [episodic paroxysmal anxiety]; I10 Essential (primary) hypertension
CPT/HCPCS: 36000; 36415; 70450; 71045; 80053; 84484; 85025; 85379; 85610; 85730; 93005; 93041; 93268; 99285; G0378; A9270-GY

== ENCOUNTER 2022-03-07 05:36 | Day surgery (SDC) | payer OTHER ==
[2022-03-07] MEDS ORDERED: Lactated Ringers 1,000 ML IV SCH (06:00)
[2022-03-07] MEDS ORDERED: Versed 2 MG/2 ML Injection ONE (06:49)
[2022-03-07] MEDS ORDERED: DIPRIVAN 200 MG/20 ML IV ONE ×2 (06:49→07:08)
[2022-03-07 07:30] VITALS: PULSE 72
[2022-03-07 07:39] VITALS: BP 132/80; O2SAT 93
--- NOTE | 2022-03-07 11:21 | OP ---
SURGERY DATE/TIME: 03/07/2022 0700 PREOPERATIVE DIAGNOSIS: Positive Cologuard. History of previous colon perforations. POSTOPERATIVE DIAGNOSIS: Ascending colon polyp and sigmoid diverticulosis. PROCEDURE: Colonoscopy with cold forceps biopsy. SURGEON: Dr. Efraín Weathers. ANESTHESIA: MAC. Medications given by anesthesia department. HISTORY: The patient is a 56-year-old white male patient presenting now for positive Cologuard. The patient gives us a history of having previous colon perforations years ago. He last had a colonoscopy 30 years ago which they were unable to get more than 8 inches in. The patient now has a positive Cologuard and suggested to have a colonoscopic evaluation. He was appraised of the risks of the procedure including the risk of perforation, phlebitis, untoward reaction to medication, bleeding and missed lesions. The patient verbalized his understanding and desired to have the procedure performed. DESCRIPTION OF PROCEDURE: The patient was given the medications by the anesthesia department. He had continuous pulse oximetry, ECG monitoring, intermittent blood pressure monitoring during the examination. He was placed in the left lateral decubitus position. A digital rectal examination was performed and revealed normal anal sphincter tone, no masses and normal prostate. The flexible Olympus pediatric colonoscope was used to intubate the rectum. A view of the colon was developed sequentially to the cecum. Upon insertion and withdrawal was noted a small polyp measuring approximately 0.7 cm in size which was destroyed using passes with cold biopsy forceps. Upon insertion and withdrawal, including a retroflex view in the rectum, otherwise was noted sigmoid diverticulosis and in fact one large diverticulum which did not pass very far inside otherwise for thoughts of potential fistulous tract appeared to be negative. The scope was removed from the patient who tolerated the procedure well and was sent back to OP recovery in good condition. The prep was noted to be fair to good.
== END 2022-03-07 08:31 | disposition home or self-care (01) ==
LOC: SDC 05:36
PROVIDERS: ATTEND Family Medicine
DX: K63.5 Polyp of colon (principal); R19.5 Other fecal abnormalities; Z87.19 Personal history of other diseases of the digestive system; K57.90 Diverticulosis of intestine, part unspecified, without perforation or abscess without bleeding; K57.30 Diverticulosis of large intestine without perforation or abscess without bleeding
CPT/HCPCS: J2250; J2704

== ENCOUNTER 2022-10-15 09:20 | Emergency (ER) | payer OTHER ==
--- NOTE | 2022-10-15 09:36 | ERPHSYRPT ---
- History of Present Illness Time Seen by Provider: 10/15/22 09:35 Source: patient, family Exam Limitations: no limitations Patient Subjective Stated Complaint: Pt states "I fell about 10 days ago and my left ribs and back are killing me." Triage Nursing Assessment: PT presented alert and oriented X 3, skin pwd. PT ambulates with a limp. PT moaning and grunting. PT will occasionally spasm and gasp. Physician History: This is a 57-year-old obese white male who told the nurse that he fell 10 days ago and told me that he fell 5 days ago from a height onto the porch steps hitting the left lateral side of his chest and left lateral side of his abdomen. Patient states that he thought he tough it out and its not improving. Even after taking hydrocodone 7.5/325 the pain is not any better. He took 1 of those tablets 1 hour prior to arrival. Patient has a history of anxiety, bipolar disorder and depression. He has chronic low back pain and he sees pain specialist Dr. Zimmerman for this. He also has some prostate issues. Patient denies anterior chest pain. He denies shortness of breath. He has some left upper quadrant abdominal pain as well. Occurred: days ago (5 days ago) Reason for Fall: fell from standing pos Injuries/Pain Location: chest (Left lateral), abdomen (Left upper quadrant), back Loss of Consciousness: no loss of consciousness Quality: aching, sharpness, stabbing Severity of Pain-Max: moderate Severity of Pain-Current: moderate Modifying Factors: Improves With: movement Associated Symptoms (Fall): abdominal pain (Left upper quadrant), back pain (Thoracic level), trouble walking (Secondary to pain in his ribs on the left side), other (Left lateral ribs) Allergies/Adverse Reactions: Sulfa (Sulfonamide Antibiotics) Allergy (Verified 03/07/22 06:03) felt like on fire Home Medications: Hydrocodone/Acetaminophen [Hydrocodone-Acetamin 7.5-325] 1 tab PO QID 03/01/22 [History] Hx Tetanus, Diphtheria Vaccination/Date Given: Yes Hx Influenza Vaccination/Date Given: No Hx Pneumococcal Vaccination/Date Given: No Immunizations Up to Date: Yes Travel Risk - International Travel Have you traveled outside of the country in past 3 weeks: No - Coronavirus Screening Are you exhibiting any of the following symptoms?: No Close contact with a COVID-19 positive Pt in past 14-21 Days: No - Vaccine Status Have you recieved a Covid-19 vaccination: No - Review of Systems Constitutional: No Symptoms Eyes: No Symptoms Ears, Nose, & Throat: No Symptoms Respiratory: No Symptoms Cardiac: No Symptoms Abdominal/Gastrointestinal: Abdominal Pain (Left upper quadrant) Genitourinary Symptoms: No Symptoms Musculoskeletal: Fall, Injury Skin: No Symptoms Neurological: No Symptoms Psychological: No Symptoms Endocrine: No Symptoms Hematologic/Lymphatic: No Symptoms Immunological/Allergic: No Symptoms All Other Systems: Reviewed and Negative - Past Medical History Pertinent Past Medical History: Yes Neurological History: No Pertinent History ENT History: No Pertinent History Cardiac History: No Pertinent History Respiratory History: No Pertinent History Endocrine Medical History: No Pertinent History Musculoskeletal History: Arthritis GI Medical History: No Pertinent History History: No Pertinent History Psycho-Social History: Anxiety, Bipolar, Depression Male Reproductive Disorders: Prostate Problems Other Medical History: Chronic back pain. - Past Surgical History Past Surgical History: Yes Gastrointestinal: Other Genitourinary: No Pertinent History Musculoskeletal: No Pertinent History Male Surgical History: No Pertinent History Other Surgical History: Colon/bladder surgery/perferation when child, lumbar injection to get rid of burning in legs. - Social History Smoking Status: Former smoker Exposure to second hand smoke: Yes Drug Use: none Patient Lives Alone: No - Nursing Vital Signs Nursing Vital Signs: Initial Vital Signs Temperature 97.4 F 10/15/22 09:28 Pulse Rate 125 H 10/15/22 09:28 Respiratory Rate 24 10/15/22 09:28 Blood Pressure 144/114 10/15/22 09:28 O2 Sat by Pulse Oximetry 98 10/15/22 09:28 Pain Scale Pain Intensity 6 - [place] Coma Score Best Eye Response ([place]): (4) open spontaneously Best Verbal Response ([place]): (5) oriented Best Motor Response ([place]): (6) obeys commands [place] Total: 15 - Physical Exam General Appearance: moderate distress, alert, anxiety, obese Head Injury: no evidence of injury Eye Exam: PERRL/EOMI ENT Exam: airway nml, nml ext.inspection Neck Exam: supple, trachea midline, full range of motion, normal alignment, normal inspection Respiratory/Chest Exam: ecchymosis, rib tenderness (Left lateral), No crepitus, No accessory muscle use, No subcutaneous emphysema Cardiovascular Exam: tachycardia Gastrointestinal Exam: soft, normal bowel sounds, tenderness (Left upper quadrant) Rectal Exam: not done Back Exam: normal inspection, normal range of motion, No CVA tenderness, No vertebral tenderness Extremity Exam: normal inspection, normal range of motion, capillary refill <3 sec, pelvis stable Neurologic Exam: alert, oriented x 3, cooperative, internal medicine doctor II-XII nml as tested, normal mood/affect, nml cerebellar function, nml station & gait, sensation nml Skin Exam: normal color, warm, dry SpO2 Interpretation: normal SpO2: 98 O2 Delivery: Room Air - Course Nursing assessment & vital signs reviewed: Yes Ordered Tests: Active Orders 24 hr Category Date Time Status IV Insertion STAT Care 10/15/22 09:53 Active ABDOMEN AND PELVIS W/0 CONTRAS [CT] Stat Exams 10/15/22 09:54 Taken CHEST WITHOUT CONTRAST [CT] Stat Exams 10/15/22 09:40 Taken RECONSTRUCTION [CT] Stat Exams 10/15/22 09:40 Taken AMYLASE Stat Lab 10/15/22 10:04 Completed CBC W DIFF Stat Lab 10/15/22 10:04 Completed CMP Stat Lab 10/15/22 10:04 Completed LIPASE Stat Lab 10/15/22 10:04 Completed Medication Summary Discontinued Medications Generic Name Dose Route Start Last Admin Trade Name Isaias PRN Reason Stop Dose Admin Ketorolac Tromethamine 60 mg 10/15/22 09:39 10/15/22 10:01 Ketorolac Tromethamine 30 Mg/Ml Inj IM 10/15/22 09:40 Not Given STAT ONE Lorazepam 0.5 mg 10/15/22 10:33 10/15/22 10:37 Lorazepam 2 Mg/1 Ml 2 Mg Vial IV 10/15/22 10:34 0.5 mg STAT ONE Administration Lorazepam Confirm 10/15/22 10:35 Lorazepam 2 Mg/1 Ml 2 Mg Vial Administered 10/15/22 10:36 Dose 2 mg .ROUTE .STK-MED ONE Morphine Sulfate 4 mg 10/15/22 09:53 10/15/22 10:04 Morphine Sulfate 4 Mg/Ml Injection IV 10/15/22 09:54 4 mg STAT ONE Administration Morphine Sulfate Confirm 10/15/22 10:02 Morphine Sulfate 4 Mg/Ml Injection Administered 10/15/22 10:03 Dose 4 mg .ROUTE .STK-MED ONE Morphine Sulfate 2 mg 10/15/22 10:33 10/15/22 10:37 Morphine Sulfate 2 Mg/Ml Inj IV 10/15/22 10:34 2 mg STAT ONE Administration Morphine Sulfate Confirm 10/15/22 10:35 Morphine Sulfate 2 Mg/Ml Inj Administered 10/15/22 10:36 Dose 2 mg .ROUTE .STK-MED ONE Ondansetron HCl 4 mg 10/15/22 09:53 10/15/22 10:04 Ondansetron Hcl 4 Mg/2 Ml Vial IV 10/15/22 09:54 4 mg STAT ONE Administration Ondansetron HCl Confirm 10/15/22 10:02 Ondansetron Hcl 4 Mg/2 Ml Vial Administered 10/15/22 10:03 Dose 4 mg .ROUTE .STK-MED ONE Orphenadrine Citrate 60 mg 10/15/22 09:39 10/15/22 10:00 Orphenadrine Citrate 60 Mg/2 Ml Vial IM 10/15/22 09:40 Not Given STAT ONE Orphenadrine Citrate 60 mg 10/15/22 09:55 10/15/22 10:04 Orphenadrine Citrate 60 Mg/2 Ml Vial IV 10/15/22 09:56 60 mg STAT ONE Administration Orphenadrine Citrate Confirm 10/15/22 10:02 Orphenadrine Citrate 60 Mg/2 Ml Vial Administered 10/15/22 10:03 Dose 60 mg .ROUTE .STK-MED ONE Lab/Rad Data: Laboratory Result Diagrams 10/15/22 10:04 10/15/22 10:04 Laboratory Results 10/15/22 10/15/22 Range/Units 10:04 10:04 WBC 7.0 (4.0-10.5) x10^3/uL RBC 5.53 (4.1-5.6) x10^6/uL Hgb 16.6 (12.5-18.0) g/dL Hct 48.2 (42-50) % MCV 87.2 (78-100) fL MCH 30.0 (26-32) pg MCHC 34.4 (32-36) g/dL RDW 12.4 (11.5-14.0) % Plt Count 112 L (150-450) x10^3/uL MPV 11.5 H (7.5-11.0) fL Gran % 68.1 H (36.0-66.0) % Immature Gran % (Auto) 0.3 (0.00-0.4) % Nucleat RBC Rel Count 0.0 (0.00-0.1) % Eos # (Auto) 0.23 (0-0.5) x10^3/uL Immature Gran # (Auto) 0.02 (0.00-0.03) x10^3u/L Absolute Lymphs (auto) 1.52 (1.0-4.6) x10^3/uL Absolute Monos (auto) 0.39 (0.0-1.3) x10^3/uL Absolute Nucleated RBC 0.00 (0.00-0.01) x10^3u/L Lymphocytes % 21.7 L (24.0-44.0) % Monocytes % 5.6 (0.0-12.0) % Eosinophils % 3.3 (0.00-5.0) % Basophils % 1.0 (0.0-0.4) % Absolute Granulocytes 4.77 (1.4-6.9) x10^3/uL Basophils # 0.07 (0-0.4) x10^3/uL Sodium 138 (137-145) mmol/L Potassium 4.6 (3.5-5.1) mmol/L Chloride 107 (98-107) mmol/L Carbon Dioxide 20 L (22-30) mmol/L Anion Gap 15.5 H (5-15) MEQ/L BUN 12 (9-20) mg/dL Creatinine 1.01 (0.66-1.25) mg/dL Estimated GFR > 60.0 ML/MIN Glucose 149 H (74-106) mg/dL Calcium 9.6 (8.4-10.2) mg/dL Total Bilirubin 0.80 (0.2-1.3) mg/dL AST 25 (17-59) U/L ALT 26 (0-50) U/L Alkaline Phosphatase 100 (38-126) U/L Serum Total Protein 8.6 H (6.3-8.2) g/dL Albumin 4.8 (3.5-5.0) g/dL Amylase 72 (30-110) U/L Lipase 76 (23-300) U/L - Progress Progress: improved Progress Note: 10/15/22 12:05 CT scan of the chest shows a nondisplaced left 11th rib fracture. There is no evidence of hemothorax or pneumothorax. CT scan of the thoracic spine shows no acute fracture or subluxation. CT scan of the abdomen pelvis without contrast shows no perisplenic fluid and no evidence of any splenic injury. There is no acute intra-abdominal or intr apelvic findings. Counseled pt/family regarding: lab results, diagnosis, need for follow-up, rad results - Departure Departure Disposition: Home Clinical Impression: Fall with significant injury, Left rib fracture Condition: Stable Critical Care Time: No Referrals: WHITNEY LAY NP [Primary Care Provider] - Follow up/PCP as directed Additional Instructions: Continue your [place] as prescribed. Begin the new prescription medication. Do not use a rib belt. Be up and ambulating and active. Follow-up with your primary prescribing physicians including your pain specialist for further evaluation and management of your pain Prescriptions: Prednisone 10 mg [Deltasone 10 mg] 10 mg PO TID #12 tablet Orphenadrine Citrate 100 mg [Norflex 100 MG Tablet] 100 mg PO BID #10 tab
[2022-10-15] MEDS ORDERED: Norflex 60 MG/2 ML IM ONE (09:39)
[2022-10-15] MEDS ORDERED: TORAdol 30 mg Injection IM ONE (09:39)
[2022-10-15] MEDS ORDERED: Zofran 4 MG/2 ML VIAL IV ONE (09:53)
[2022-10-15] MEDS ORDERED: MORPHINE SULFATE 4 MG INJ IV ONE (09:53)
[2022-10-15] MEDS ORDERED: Norflex 60 MG/2 ML IV ONE (09:55)
[2022-10-15] MEDS ORDERED: Zofran 4 MG/2 ML VIAL ONE (10:02)
[2022-10-15] MEDS ORDERED: MORPHINE SULFATE 4 MG INJ ONE (10:02)
[2022-10-15] MEDS ORDERED: Norflex 60 MG/2 ML ONE (10:02)
[2022-10-15 10:07] LABS: Absolute Neutrophil Ct (ANC) 4.77 x10^3/uL (1.4-6.9); Basophil (Absolute #) 0.07 x10^3/uL (0-0.4); Eosinophil % 3.3 % (0.00-5.0); Eosinophil (Absolute #) 0.23 x10^3/uL (0-0.5); Hematocrit 48.2 % (42-50); Hemoglobin 16.6 g/dL (12.5-18.0); Lymphocyte (Absolute #) 1.52 x10^3/uL (1.0-4.6); Lymphocytes % 21.7 % (24.0-44.0); Mean Cell Volume 87.2 fL (78-100); Mean Corpuscular Hgb Concent. 34.4 g/dL (32-36); Mean Platelet Volume 11.5 fL (7.5-11.0); Monocyte (Absolute #) 0.39 x10^3/uL (0.0-1.3); Monocytes % 5.6 % (0.0-12.0); Neutrophil % 68.1 % (36.0-66.0); Platelet Count 112 x10^3/uL (150-450); Red Blood Count 5.53 x10^6/uL (4.1-5.6); Red Cell Distribution Width 12.4 % (11.5-14.0)
[2022-10-15] MEDS ORDERED: MORPHINE SULFATE 2 MG INJ IV ONE (10:33)
[2022-10-15] MEDS ORDERED: Ativan 2 MG/1 ML VIAL IV ONE (10:33)
[2022-10-15] MEDS ORDERED: Ativan 2 MG/1 ML VIAL ONE (10:35)
[2022-10-15] MEDS ORDERED: MORPHINE SULFATE 2 MG INJ ONE (10:35)
[2022-10-15 10:42] LABS: ALBUMIN 4.8 g/dL (3.5-5.0); ALKALINE PHOSPHATASE 100 U/L (38-126); AMYLASE 72 U/L (30-110); ANION GAP 15.5 MEQ/L (5-15); BLOOD UREA NITROGEN 12 mg/dL (9-20); CHLORIDE 107 mmol/L (98-107); Calcium 9.6 mg/dL (8.4-10.2); Carbon Dioxide 20 mmol/L (22-30); Creatinine 1 1.01 mg/dL (0.66-1.25); EST GLOMERULAR FILTRATION RATE > 60.0 ML/MIN; Glucose 149 mg/dL (74-106); LIPASE 76 U/L (23-300); Potassium 4.6 mmol/L (3.5-5.1); SGOT/AST 25 U/L (17-59); SGPT/ALT 26 U/L (0-50); SODIUM 138 mmol/L (137-145); Total Protein 8.6 g/dL (6.3-8.2)
[2022-10-15 11:14] VITALS: O2SAT 98
[2022-10-15 12:54] VITALS: BP 178/102; PULSE 95
[2022-10-15 16:00] LABS: Slide Review 1 YES
--- NOTE | 2022-10-15 19:58 | XRAY ---
Indication: Pain following fall. Multiple contiguous axial images obtained through the chest without contrast. Comparison: None Lungs hyperinflated with minimal bilateral dependent atelectasis. Tiny bilateral calcified granulomas. No suspicious pulmonary mass/nodule, infiltrate, effusion, or pneumothorax. Heart not enlarged. Aorta is normal in course and caliber. Tiny mediastinal and bilateral hilar calcified nodes. No pathologic mediastinal lymphadenopathy. Bony thorax demonstrates nondisplaced posterior left 11 rib fracture and mild degenerative changes throughout the spine. CT abdomen/pelvis reported separately. Impression: 1. Nondisplaced left 11 rib fracture without hemothorax/pneumothorax. 2. Chronic findings including degenerative spondylosis and old granulomatous disease. Comment: Preliminary interpretation made by [facility]. No critical discrepancy.
--- NOTE | 2022-10-15 20:00 | XRAY ---
Indication: Pain following fall. Sagittal, axial, and coronal reformatted images obtained using raw data from same day CT chest exam. Comparison: None Mild multilevel bridging and bridging endplate osteophytes. No acute fracture, suspicious bony lesions, or spinal canal stenosis. Sagittal and coronal reformatted images demonstrates normal alignment with vertebral body heights/disc spaces maintained. No acute compression fracture or subluxation. CT chest reported separately. Impression: 1. Multilevel degenerative spondylosis. 2. Remaining CT thoracic spine negative. Comment: Preliminary interpretation made by [facility]. No critical discrepancy.
--- NOTE | 2022-10-15 20:06 | XRAY ---
Indication: Pain following fall. Multiple contiguous axial images obtained through the abdomen and pelvis without contrast. Comparison: November 23, 2017 CT chest reported separately. Noncontrasted stomach and bowel loops appear nonobstructed with normal appendix. Again descending and sigmoid diverticulosis without diverticulitis. Stable intact sigmoid anastomosis. No free fluid/air. Stable right upper renal cyst. Remaining liver, gallbladder, pancreas, spleen, adrenal glands, kidneys, ureters, and bladder are unremarkable for noncontrast exam. Again minimal aortoiliac calcifications without AAA. Osseous structures intact again with minimal degenerative changes throughout the spine. Impression: 1. Again colonic diverticulosis, right renal cyst, arteriosclerotic disease, and degenerative spondylosis. 2. Remaining CT abdomen/pelvis without contrast exam is negative. Comment: Preliminary interpretation made by [facility]. No critical discrepancy.
== END 2022-10-15 12:46 | disposition home or self-care (01) ==
LOC: ED 09:20
DX: S22.32XA Fracture of one rib, left side, initial encounter for closed fracture (principal); W17.89XA Other fall from one level to another, initial encounter; Y92.007 Garden or yard of unspecified non-institutional (private) residence as the place of occurrence of the external cause; R07.9 Chest pain, unspecified; R10.12 Left upper quadrant pain; M54.6 Pain in thoracic spine; Z79.891 Long term (current) use of opiate analgesic; Z28.310 Unvaccinated for COVID-19
CPT/HCPCS: 36000; 36415; 71250; 74176; 76376; 80053; 82150; 83690; 85025; 96374; 96375; 96376; 99284; J2060; J2270; J2360; J2405